=== PATIENT | male | born 1990 | race African-American/Black ===

== ENCOUNTER 2020-09-11 19:03 | Emergency (ER) | payer OTHER ==
[2020-09-11 19:09] VITALS: BP 119/75; PULSE 65; RESP 18; TEMP 98.3
--- NOTE | 2020-09-11 19:43 | XR ---
EXAMINATION TYPE: XR finger RT DATE OF EXAM: 09/11/2020 COMPARISON: NONE HISTORY: Pain TECHNIQUE: 3 views FINDINGS: 3 views of the right index finger show no fracture nor dislocation. There is no sign of a r adiopaque foreign body. Joint spaces are normal. IMPRESSION: Negative right index finger exam.
[2020-09-11] MEDS ORDERED: CEPHALEXIN 500MG STARTER PACK 4 CAP BTL PO STA (19:48)
[2020-09-11] MEDS ORDERED: SULFAMETH-TMP DS STARTER PACK 2 TAB BTL PO STA (19:48)
--- NOTE | 2020-09-11 19:52 | ED ---
General Adult HPI - General Chief complaint: Skin/Abscess/Foreign Body Stated complaint: finger injury Time Seen by Provider: 09/11/20 19:12 Source: patient, RN notes reviewed Mode of arrival: ambulatory Limitations: no limitations - History of Present Illness Initial comments: 29-year-old male presents to the emergency room for a chief complaint of right finger pain. Patient reports he has pain in the fingertip of his right second digit. States this started yesterday while he was at work. 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 Patient reports he notices pain that has worsened today to the point where he did call into work. Patient denies any fever or chills. Denies any pain with bending the finger. Denies any streaking or spreading redness.Patient has no other complaints at this time including shortness of breath, chest pain, abdominal pain, nausea or vomiting, headache, or visual changes. - Related Data Previous Rx's Medication Instructions Recorded traMADol HCl [Ultram] 50 mg PO Q6H PRN #12 tab 03/28/14 Cephalexin [Keflex] 500 mg PO Q6HR 10 Days #40 cap 09/11/20 Sulfamethox-Tmp 800-160Mg [Bactrim 1 tab PO Q12HR #20 tab 09/11/20 DS 800-160 mg] Allergies Allergy/AdvReac Type Severity Reaction Status Date / Time No Known Allergies Allergy Verified 09/11/20 19:09 Review of Systems ROS Statement: Those systems with pertinent positive or pertinent negative responses have been documented in the HPI. ROS Other: All systems not noted in ROS Statement are negative. Past Medical History Past Medical History: No Reported History History of Any Multi-Drug Resistant Organisms: None Reported Past Surgical History: No Surgical Hx Reported Past Psychological History: No Psychological Hx Reported Smoking Status: Current every day smoker Past Alcohol Use History: None Reported Past Drug Use History: None Reported General Exam Limitations: no limitations General appearance: alert, in no apparent distress Head exam: Present: atraumatic, normocephalic, normal inspection Eye exam: Present: normal appearance, PERRL, EOMI. Absent: scleral icterus, conjunctival injection, periorbital swelling ENT exam: Present: normal exam, mucous membranes moist Neck exam: Present: normal inspection. Absent: tenderness, meningismus, lymphadenopathy Respiratory exam: Present: normal lung sounds bilaterally. Absent: respiratory distress, wheezes, rales, rhonchi, stridor Cardiovascular Exam: Present: regular rate, normal rhythm, normal heart sounds. Absent: systolic murmur, diastolic murmur, rubs, gallop, clicks Extremities exam: Present: full ROM (Full range of motion of the right second digit.), normal capillary refill (Capillary refill less than 2 seconds in the right second digit. Radial pulse 2+ in the right upper extremity.), other (Patient has minimal edema to the palmar aspect of the right second digit distal phalanx. This is tender. Non-erythematous. No tenderness of the flexor tendon. No streaking or spreading redness.) Course Vital Signs 09/11/20 19:06 Temperature 98.3 F Pulse Rate 65 Respiratory 18 Rate Blood Pressure 119/75 O2 Sat by Pulse 98 Oximetry Medical Decision Making - Medical Decision Making Vitals are stable. Patient is afebrile. HPI, physical exam as documented. Only minimal edema of the finger pad of the right second digit. No erythema or streaking redness. No increased warmth. XR of the right finger is negative. Dr. Villa also evaluated patient. At this time he has a possibly developing paronychia versus felon. However there is no indication for drainage at this time as there is no fluctuance or evidence of pus. We started patient on antibiotics. I had a lengthy discussion with him regarding return parameters. If symptoms are worsening he needs to return for reevaluation and possible drainage. He is agreeable to this. Disposition Clinical Impression: Finger pain, right Disposition: HOME SELF-CARE Condition: Good Instructions (If sedation given, give patient instructions): Paronychia (ED) Additional Instructions: Please take antibiotics as directed. It may take about 24 hours for antibiotics to have an effect. However if your fingertip is starting to swell more, pain is worsening, or pain is traveling up yourr finger you need to return to the emergency department for further evaluation. Prescriptions: Sulfamethox-Tmp 800-160Mg [Bactrim DS 800-160 mg] 1 tab PO Q12HR #20 tab Cephalexin [Keflex] 500 mg PO Q6HR 10 Days #40 cap Is patient prescribed a controlled substance at d/c from ED?: No Referrals: Jeff Cardoso MD [REFERRING] - 1-2 days Sreedhar Patel DO [Medical Doctor] - 1-2 days Time of Disposition: 19:49
== END 2020-09-11 20:00 | disposition home or self-care (01) ==
LOC: EC 19:03
DX: M79.644 Pain in right finger(s) (principal); F17.200 Nicotine dependence, unspecified, uncomplicated
CPT/HCPCS: 99283

== ENCOUNTER 2020-09-14 13:34 | Emergency (ER) | payer OTHER ==
[2020-09-14 13:41] VITALS: BP 111/75; PULSE 69; RESP 18; TEMP 98.1
[2020-09-14] MEDS ORDERED: LIDOCAINE 1% INJ 10MG/ML (20 ML MDV) SQ ONE (14:06)
--- NOTE | 2020-09-14 14:25 | ED ---
General Adult HPI - General Chief complaint: Recheck/Abnormal Lab/Rx Stated complaint: Revisit right finger pain Time Seen by Provider: 09/14/20 14:03 Source: patient, RN notes reviewed, old records reviewed Mode of arrival: ambulatory Limitations: no limitations - History of Present Illness Initial comments: 29-year-old male presenting for reevaluation of right index finger pain and swelling. Patient was initiated on antibiotics 3 days prior for suspected paronychia there is no drainable fluid collection at that time. He's had worsening pain although he has not been able to get his antibiotics filled yet so he has not taken oral antibiotics over the last 3 days. No fever or chills. No other complaints. - Related Data Previous Rx's Medication Instructions Recorded traMADol HCl [Ultram] 50 mg PO Q6H PRN #12 tab 03/28/14 Cephalexin [Keflex] 500 mg PO Q6HR 10 Days #40 cap 09/11/20 Sulfamethox-Tmp 800-160Mg [Bactrim 1 tab PO Q12HR #20 tab 09/11/20 DS 800-160 mg] Allergies Allergy/AdvReac Type Severity Reaction Status Date / Time No Known Allergies Allergy Verified 09/14/20 13:41 Review of Systems ROS Statement: Those systems with pertinent positive or pertinent negative responses have been documented in the HPI. ROS Other: All systems not noted in ROS Statement are negative. Past Medical History Past Medical History: No Reported History History of Any Multi-Drug Resistant Organisms: None Reported Past Surgical History: No Surgical Hx Reported Past Psychological History: No Psychological Hx Reported Smoking Status: Current every day smoker Past Alcohol Use History: None Reported Past Drug Use History: None Reported General Exam Limitations: no limitations General appearance: alert, in no apparent distress Head exam: Present: atraumatic, normocephalic Eye exam: Present: normal appearance. Absent: PERRL, EOMI ENT exam: Present: normal exam Neck exam: Present: normal inspection. Absent: tenderness, meningismus Respiratory exam: Present: normal lung sounds bilaterally. Absent: respiratory distress, wheezes Cardiovascular Exam: Present: regular rate, normal rhythm Extremities exam: Present: other (right index finger paronychia) Course Vital Signs 09/14/20 13:39 Temperature 98.1 F Pulse Rate 69 Respiratory 18 Rate Blood Pressure 111/75 O2 Sat by Pulse 99 Oximetry Procedures - Moore Protocol (Time Out) Procedure Performed:: Insicion and drainage Performing Provider: Erickson Villa Nurse: Delgado Armando Patient Identification (2 identifiers required): Chart, Verbal, Arm Band, Name, Birthdate Patient/Legal Raise Miner has Confirmed: Identity, Site, Procedure, Consent Site: Right index finger Site Marked: Yes Site Verified With Patient/Guardian: Yes - Incision & Drainage Consent Obtained: written consent Indication: right second digit paronychia Site: hand Anesthetic Used: lidocaine 1% I&D Cleaning Method: Betadine Scalpel Used: #11 Needle Aspiration Performed?: No Irrigation Performed?: No I&D Drainage Obtained: Pus Patient Tolerated Procedure: well - Nerve Block Consent Obtained: written consent Local Anesthetic Used: Lidocaine 1% Amount of anesthesia used: 4 Nerve Blocks: digital Procedure Successful: Yes Complications: none Patient Tolerated Procedure: well Medical Decision Making - Medical Decision Making 29-year-old male with right index finger paronychia, this is now drainable, incision and drainage is performed emergency department. Pulse is obtained, patient will get his antibiotics filled which include Keflex and Bactrim. He will follow with his primary care physician Disposition Clinical Impression: Paronychia Disposition: HOME SELF-CARE Condition: Good Instructions (If sedation given, give patient instructions): Paronychia (ED) Additional Instructions: Please take antibiotics as prescribed. Is patient prescribed a controlled substance at d/c from ED?: No Referrals: None,Stated [Primary Care Provider] - 1-2 days Jefferson Simental [STAFF PHYSICIAN] - 1-2 days Time of Disposition: 14:25
== END 2020-09-14 14:37 | disposition home or self-care (01) ==
LOC: EC 13:34
DX: L03.011 Cellulitis of right finger (principal); F17.200 Nicotine dependence, unspecified, uncomplicated
CPT/HCPCS: 99283; 10060; J2001